=== PATIENT | female | born 1985 | race Caucasian/White ===

== ENCOUNTER 2018-09-02 20:28 | Emergency (ER) | payer OTHER ==
[~2018-09-02] VITALS: Ht 170.2 cm; Wt 110.5 kg
[2018-09-02 20:31] VITALS: BP 106/69
[2018-09-02 21:03] LABS: APPEARANCE,URINE CLEAR (CLEAR); BILIRUBIN,URINE NEGATIVE (NEGATIVE); GLUCOSE, URINE (UA) NEGATIVE (NEGATIVE); KETONES,URINE NEGATIVE (NEGATIVE); LEUKOCYTE ESTERASE ,URINE NEGATIVE (NEGATIVE); NITRATE,URINE NEGATIVE (NEGATIVE); OCCULT BLOOD,URINE LARGE (NEGATIVE); PH,URINE 5.5 (5.0-8.0); PROTEIN,URINE NEGATIVE (NEGATIVE); UROBILINOGEN,URINE 0.2 mg/dL (<=1.0)
[2018-09-02 21:35] LABS: BACTERIA,URINE Rare /HPF (None Seen); SQUAMOUS EPITHELIAL CELL,UR Moderate /LPF (None Seen); WBC,URINE 0-2 /HPF (0-5)
== END 2018-09-03 01:12 | disposition left against medical advice (07) ==
LOC: EMS 20:30
DX: R10.2 Pelvic and perineal pain (principal); L29.9 Pruritus, unspecified; Z53.21 Procedure and treatment not carried out due to patient leaving prior to being seen by health care provider

== ENCOUNTER 2019-06-06 10:54 | Emergency (ER) | payer OTHER ==
[~2019-06-06] VITALS: Ht 170.2 cm; Wt 109.1 kg
[2019-06-06] MEDS ORDERED: AMOX TR/POT CLAV 875 MG/125 MG TABLET PO ONE (12:45)
[2019-06-06] MEDS ORDERED: KETOROLAC TROMETHAMINE 10 MG TABLET PO ONE (12:45)
[2019-06-06 13:40] VITALS: BP 109/61
== END 2019-06-06 13:44 | disposition home or self-care (01) ==
LOC: EMS 10:55
DX: K04.7 Periapical abscess without sinus (principal)

== ENCOUNTER 2019-06-30 17:41 | Emergency (ER) | payer OTHER ==
[~2019-06-30] VITALS: Ht 170.2 cm; Wt 109.1 kg
[2019-06-30] MEDS ORDERED: SIME125C PO (17:51)
[2019-06-30] MEDS ORDERED: 0.9% SODIUM CHLORIDE 10 ML SYRINGE IVP PRN (19:30)
[2019-06-30 19:59] LABS: BASOPHILS % (AUTO) 0.5 % (0.0-2.0); EOSINOPHILS % (AUTO) 4.1 % (1.0-6.0); HEMATOCRIT 43.1 % (36-46); HEMOGLOBIN 14.4 g/dL (12.0-16.0); LYMPHOCYTES # (AUTO) 3.2 K/uL (1.0-4.8); MEAN CORPUSCULAR HEMOGLOBIN 29.4 pg (26.0-34.0); MEAN CORPUSCULAR HGB CONC 33.5 G/dL (31.0-37.0); MEAN CORPUSCULAR VOLUME 88 fL (80-100); MONOCYTES # (AUTO) 0.6 K/uL (0.1-1.0); MONOCYTES % (AUTO) 5.9 % (2.0-9.0); NEUTROPHILS % (AUTO) 58.5 % (40.0-70.0); PLATELET COUNT (AUTO) 352 K/uL (150-450); RED BLOOD CELL COUNT(AUTO) 4.91 MIL/uL (4.00-5.20); RED CELL DISTRIBUTION WIDTH 13.7 % (11.5-14.5)
[2019-06-30] MEDS ORDERED: KETOROLAC TROMETHAMINE 30 MG/ML VIAL IVP ONE (20:15)
[2019-06-30 20:18] LABS: ANION GAP 7 mmol/L (8-16); CALCIUM, TOTAL 9.2 mg/dL (8.8-10.5); CARBON DIOXIDE 29 mmol/L (22-29); CHLORIDE 104 mmol/L (98-107); CREATININE 0.93 mg/dL (0.60-1.30); GLOMERULAR FILTR. RATE CALC > 60 mL/min (>60); GLUCOSE,RANDOM 92 mg/dL (70-110); SODIUM SERUM 140 mmol/L (136-145); UREA NITROGEN, BLOOD 10 mg/dL (7-18)
[2019-06-30 20:25] LABS: ALANINE AMINOTRANSFERASE 23 U/L (12-78); ALBUMIN 3.8 g/dL (3.4-5.0); ALKALINE PHOSPHATASE 75 U/L (46-116); ASPARTATE AMINOTRANSFERASE 11 U/L (15-37); BILIRUBIN,TOTAL 0.2 mg/dL (0.1-1.0); HCG,QUANTITATIVE < 1 mIU/mL (0-6); LIPASE 176 U/L (73-393); TOTAL PROTEIN, SERUM 7.9 g/dL (6.4-8.2)
[2019-06-30] MEDS ORDERED: SODIUM CHLORIDE 0.9% 100 ML ONE (20:45)
[2019-06-30] MEDS ORDERED: IOVERSOL 350 MG/ML 100 ML VIAL ONE (20:45)
[2019-06-30] MEDS ORDERED: CLINDAMYCIN 900 MG/D5% WATER 50 ML IV ONE (22:30)
[2019-06-30 23:00] VITALS: BP 112/62
== END 2019-06-30 23:17 | disposition home or self-care (01) ==
LOC: EMS 17:42
DX: L03.211 Cellulitis of face (principal); R10.10 Upper abdominal pain, unspecified; F17.210 Nicotine dependence, cigarettes, uncomplicated
CPT/HCPCS: 36415; 70487; 76700; 80053; 83605; 83690; 84702; 85025; 87040; 96365; 96375; 99285; J1885; J3490; J7050; Q9967

== ENCOUNTER 2020-06-12 10:43 | Emergency (ER) | payer OTHER ==
[~2020-06-12] VITALS: Ht 167.6 cm; Wt 100.0 kg
[~2020-06-12 10:43] MED LIST: SIME125C PO
[2020-06-12 13:29] VITALS: BP 104/60
== END 2020-06-12 14:11 | disposition home or self-care (01) ==
LOC: EMS 10:43
DX: S83.91XA Sprain of unspecified site of right knee, initial encounter (principal); F17.210 Nicotine dependence, cigarettes, uncomplicated; X58.XXXA Exposure to other specified factors, initial encounter; Y93.89 Activity, other specified; Y92.89 Other specified places as the place of occurrence of the external cause; Y99.8 Other external cause status
CPT/HCPCS: 85379